=== PATIENT | female | born 2000 | race Caucasian/White ===

== ENCOUNTER 2025-04-25 01:32 | Day surgery (SDC) | payer OTHER, SELFPAY ==
--- NOTE | 2025-04-24 14:01 | SUR.PREOP ---
Report to the Outpatient Waiting Room, entrance under the green pavilion located off [facility], at time _0930_ on date _04/25/2025 (tomorrow)_. Planned Procedure Time: _1130_.? Time changes happen often and if your time is changed the preop area will call you the afternoon before. - You and your visitor will be asked to self-screen and do not enter if you have any COVID symptoms. Please call surgeon if you need to reschedule. - A mask is optional within the hospital at this time. Patients may have clear liquids (water, carbonated beverages, clear teas, apple juice) until 3 hours prior to surgery with a maximum of 20 ounces. - No food from midnight until time of surgery and no smoking, or chewing tobacco (or any form of nicotine). No chewing gum, candy or mints. - Infants may have breast milk until 4 hours before surgery, infant formula 6 hours prior to surgery. - Children will be allowed to drink immediately following surgery.? If applicable, please bring a bottle or sippy cup to assist with drinking. Juice, water, soda, and popsicles are readily available.? For infants on formula, please bring formula the day of surgery.? Pacifiers are allowed. Take only the following medications with a SIP of water on the morning of surgery: _NA_ DO NOT STOP ANY OF YOUR OTHER PRESCRIPTION MEDICATIONS PRIOR TO SURGERY EXCEPT THE FOLLOWING Hold all vitamins and supplements for 3 days per anesthesiologist. Medications to discontinue per physician _NA_ Date to take last dose_NA_ Please no make-up, nail croatian, hairspray, perfume, deodorant, or body powder the day of surgery.? No jewelry (including any body piercings) or valuables the day of surgery, leave them at home.? Please take a shower or bath the night before, or the morning of, surgery with an antibacterial soap.? Wear comfortable, loose fitting clothing.? Children are encouraged to wear pajamas. - Jewelry must be removed prior to entering the operating room.? Rings and piercings that are not removed may be cut off. - The hospital will not accept responsibility for valuables.? - Please leave all valuables, including medications, at home the day of surgery. If you are going home after surgery, a licensed otr company driver must drive you home.? - NO public transportation without another adult if you receive anesthesia. - We recommend that an adult stay with you for 24 hours following discharge. - We also recommend that you do not drive, make important decision, drink alcoholic beverages, or take any drugs that were not prescribed by your health care provider for at least 24 hours after your discharge time. For Pediatric surgeries, we recommend two adults accompany the child home. Follow any additional instructions given to you from your surgeon. Telephone instructions given to _Sherita_and asked if any additional questions and then verbalized understanding. Patient advised to call surgeon office or pre surgery nurse liaison [phone] if any additional questions.
[2025-04-24 14:06] VITALS: BMI 30.2
[2025-04-25] VITALS (14 sets, daily range): BP systolic 109–122; BP diastolic 67–78; PULSE 69–103; RESP 12–20; TEMP 36.1–37.2; O2SAT 95–100; BMI 31.4
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
[2025-04-25] MEDS: KETOROLAC 15 MG/ML VIAL (*BKC) IV PUSH (09:50)
[2025-04-25] MEDS: ACETAMINOPHEN 500 MG TABLET 1000 MG PO (09:50)
[2025-04-25 09:51] LABS: BEDSIDEPREGUCG Negative (Negative)
[2025-04-25 10:13] LABS: Amylase 68 U/L (30-110); Lipase 70 U/L (23-300)
--- NOTE | 2025-04-25 11:12 | P.PNAN_ITS ---
Anes - Initial Pre Proc Eval Procedure: Operation Date: 04/25/25 11:30 Proposed Procedures p Laparoscopic Cholecystectomy - Jeet Vargas DO Date/Time: 04/25/25 11:12 Surgeon: Jeet Vargas DO Pre Op Diagnosis: symptomatic cholelithiasis Patient Data Age: 25 Gender: F Height: 1.55 m Weight: 75.6 kg Last Vital Signs Temp 37.2 C 04/25/25 09:20 Pulse 87 04/25/25 09:20 Resp 18 04/25/25 09:20 BP 120/70 04/25/25 09:20 Pulse Ox 100 04/25/25 09:20 O2 Del Method Room Air 04/25/25 09:20 Allergies Allergy/AdvReac Type Severity Reaction Status Date / Time No Known Allergies Allergy Verified 04/25/25 10:08 Home Medications ?Medication ?Instructions ?Recorded ?Confirmed ?Type loratadine 10 mg tablet (Claritin) 10 mg PO DAILY 04/0104/24/25 History Laboratory Tests 04/25/25 04/25/25 09:25 09:37 Amylase 68 U/L (30-110) Lipase 70 U/L (23-300) POC Urine HCG, Qual Negative (Negative) Patient hx anesthesia problems: none Family hx anesthesia problems: none Results Review: All pre-operative results and documents have been reviewed as part of the pre- operative evaluation. [facility] Family History Family History Father Gallbladder disease Other Gallbladder disease Social History Social History Smoking status: Never smoker Second hand tobacco smoke exposure: No Alcohol intake: never Substance use: never Substance use type: does not use Do You Feel Safe in your Home?: Yes Lack of Transportation: No Lack of Food: Never True Current Housing: I Have Housing Concerned About Future Housing: No Difficulty Paying Gas/Electric Bills: No Difficulty Paying for Meds: No Currently Unemployed: No Education: Trade/Vocational Certificate Difficulty w/ Childcare or Family Care: No Living arrangements: with family Additional living arrangements comments: boyfriend Spiritual care concerns: No Anes - Eval Final PreProcedure Day of Procedure 04/25/25 11:12 Patient weight: obese Heart: regular rate and rhythm Lungs: clear to auscultation Airway: Mallampati scale class II Neurological: alert and oriented Last oral intake: >/= 8 hours ASA classification: II Emergent: no Anesthetic plan: proceed Anesthesia type and monitoring: general ETT and standard monitoring Results Review: All pre-operative results and documents have been reviewed as part of the pre- operative evaluation. Informed Consent: The patient's anesthetic plan and its attendant risks and benefits were discussed with the patient/family/POA. Questions were solicited and answers provided to the satisfaction of the patient/family/POA.
--- NOTE | 2025-04-25 11:15 | WPDHPUPDATE1 ---
History and Physical Update Update Date/Time: 04/25/25 11:15 History and Physical has been reviewed, including an updated exam of the patient. There are NO changes in the patient's condition. Risks, benefits, and alternatives have been discussed and questions answered. Patient agrees to proceed with procedure.
[2025-04-25] MEDS: ceFAZolin 2 GM in SODIUM CHLORIDE 0.9% IV 50 ML 100 ML IVPB (11:30)
--- NOTE | 2025-04-25 11:52 | S_PTH ---
PATIENT: Sherita Topete LOC: [facility] U#:[id number] AGE/SX: 25/F ROOM: RE04/25/[address]: Jeet Vargas DO : 2000 BED: DIS: 04/25/2025 SPEC #: [id number] RECD: 04/25/25 12:59 STATUS: HOSEA RESmith #: [id number] CRISTOFER: 04/25/25 11:[address]: Jeet Vargas DEPT: [facility] Surgical RECD BY: Gertrude Chapa ENTERED: 04/25/25 12:59 SP TYPE: Surgical OTHR DR: Margi Ayala, CUT OFF SAW GRADER-C Tissues: A - Gallbladder Procedures: Hematoxylin and Eosin Stain Gross and Microscopic Level 3
[2025-04-25] MEDS: BUPIVACAINE/EPINEPHRINE 0.5% 50 ML VIAL 30 ML INFILTRATE (11:59)
[2025-04-25] MEDS: LACTATED RINGERS 1,000 ML 30 ML IV CONT ×2 (12:25)
[2025-04-25] MEDS: fentaNYL CITRATE INJ (*CRX) 100 MCG/2 ML VIAL 25 MCG IV PUSH ×4 (12:35→13:10)
--- NOTE | 2025-04-25 12:47 | W.PM.PROC2 ---
Procedure Note - Detailed Date of Procedure 04/25/25 Pre-op Diagnosis symptomatic cholelithiasis Post-op Diagnosis Same Procedure Performed Laparoscopic cholecystectomy Surgeon Jeet Vargas, DO Anesthesia General and Local (0.5% bupivacaine) Indications This is a 25-year-old woman who presented with upper abdominal pain for the past several months. She has been experiencing pain after eating. She has a strong family history of gallbladder disease. An ultrasound was performed as an outpatient which showed evidence of gallbladder wall thickening and cholelithiasis. Discussions were made with the patient about treatment options and decision was made to proceed with laparoscopic cholecystectomy, possible open. Findings Laparoscopic cholecystectomy was performed. The gallbladder was somewhat contracted and contained 1 medium-sized gallstone in the fundus. There was also what appeared to be another gallstone at the neck of the gallbladder. The gallbladder wall appeared slightly thickened. The cystic duct appeared normal in size. No other intra-abdominal abnormalities were noted. The gallbladder was removed and sent to the lab for pathology. Description of Procedure Procedure as well as risks, benefits, and alternatives were discussed with patient. Written consent was obtained and placed in chart prior to procedure. The patient was brought back to surgical suite. Patient was placed in supine position on operating table. Time-out was done to confirm patient and procedure. Patient was then intubated by the anesthesia department. Abdomen was prepped and draped in sterile fashion using chlorhexidine prep. 0.5% bupivacaine with epinephrine was infiltrated at each site of incision. A 5 millimeter incision was made near the umbilicus, and a 5 millimeter Optiview trocar was advanced through the abdominal layers under direct visualization. Once inside the abdominal cavity, carbon dioxide was insufflated to create a pneumoperitoneum. The camera was inserted and the abdomen was inspected. No immediate abnormalities were identified. The patient was placed in reverse Trendelenburg position and rotated slightly to the left. An 11 millimeter incision was made in the subxiphoid region, and an 11 millimeter trocar was inserted under direct visualization. Two 5 millimeter incisions were made in the right upper quadrant, and two 5 millimeter trocars were inserted under direct visualization. The gallbladder was identified and grasped at the fundus and retracted superiorly. It was then grasped at the infundibulum retracted laterally. Careful dissection around the neck of the gallbladder was performed using blunt dissection with a [place] grasper and hook electrocautery. The cystic duct was identified, and a window was created behind it. The cystic artery was also identified and a window was created behind it. The critical view of safety was identified, visualizing the cystic duct running directly into the neck of the gallbladder, and the cystic artery running directly into the wall of the gallbladder. A 5 millimeter clip motor and chassis inspector was then used to place 2 clips proximally and 1 clip distally on both the cystic duct and cystic artery. They were then both transected using endoscopic scissors. Once safely away from the urmila hepatitis, the gallbladder was dissected free from the liver bed using hook electrocautery. Hemostasis was achieved along the way. The gallbladder was removed completely and then removed through the subxiphoid port. The liver bed was then inspected. Hemostasis appeared adequate, and our clips appeared secure. The area was gently irrigated with sterile saline. No other abnormalities were seen. The patient was flattened out in bed, and 1 final inspection was made around the abdominal cavity. The subxiphoid port was removed, and a Balwinder Aakash cone was used to approximate the fascia with an 0-Vicryl simple interrupted suture. The remaining ports were then removed under direct visualization, the camera was removed, and the pneumoperitoneum was released. The skin of the incisions was approximated using 4-0 Monocryl subcuticular sutures. Exofin glue was applied on top. The patient was then awakened from anesthesia, extubated, and transferred to recovery. Estimated Blood Loss 5 Pathology Yes (Gallbladder) Complications No immediate complications Condition Stable Disposition Same day [facility] Billing Surgery - Charge Forward: Surgery Billing
[2025-04-25] MEDS: oxyCODONE HCL (*CRX) 5 MG TAB IR PO (13:51)
[2025-04-25] MEDS: ONDANSETRON HCL ODT 4 MG TABLET PO (16:31)
== END 2025-04-25 16:45 | disposition home or self-care (01) ==
PROVIDERS: PCP Nurse Practitioner; Visit Provider Surgery
PROC: 0FT44ZZ Resection of Gallbladder, Percutaneous Endoscopic Approach (ICD-10-PCS; CPT 47562; principal; 2025-04-25 11:30)
DX: K80.10 Calculus of gallbladder with chronic cholecystitis without obstruction (principal); E66.9 Obesity, unspecified; Z68.31 Body mass index [BMI] 31.0-31.9, adult
CPT/HCPCS: 47562; 36415; 82150; 83690; 88304; J0690; A9270; J1100; J1885; J2003; J2250; J2405; J2704; J3010; J7120